=== PATIENT | female | born 1960 | race Two or more races ===

== ENCOUNTER 2018-09-17 00:05 | Emergency (ER) | payer OTHER ==
[~2018-09-17] VITALS: Ht 170.2 cm; Wt 117.0 kg
[2018-09-17] MEDS ORDERED: CLONAZEPAM1 MG (00:12)
[2018-09-17] MEDS ORDERED: MIRALAX510 GM PO (05:33)
== END 2018-09-17 05:41 | disposition home or self-care (01) ==
LOC: ER 00:05
DX: K59.09 Other constipation (principal)

== ENCOUNTER 2022-03-17 09:24 | Emergency (ER) | payer OTHER ==
[~2022-03-17] VITALS: Ht 170.2 cm; Wt 72.6 kg
[~2022-03-17 09:24] MED LIST: CLONAZEPAM1 MG; MIRALAX510 GM PO; SEROQUEL200 MG PO
== END 2022-03-17 17:42 | disposition home or self-care (01) ==
LOC: ER 09:24
DX: M54.50 Low back pain, unspecified (principal)

== ENCOUNTER 2022-04-01 08:19 | Outpatient (CLI) | payer OTHER | END 2022-04-01 08:30 | disposition home or self-care (01) | LOC: MRI 08:19 | DX: M54.50 Low back pain, unspecified (principal) | CPT/HCPCS: 72148 ==

== ENCOUNTER 2023-04-20 08:01 | Outpatient (CLI) | payer OTHER | END 2023-04-20 08:02 | disposition home or self-care (01) | LOC: TOM 08:01 | DX: R19.4 Change in bowel habit (principal) ==

== ENCOUNTER 2023-06-19 11:40 | Outpatient (CLI) | payer OTHER | END 2023-06-19 12:03 | disposition home or self-care (01) | LOC: RAD 11:40 | PROVIDERS: ATTEND Specialist | DX: M72.2 Plantar fascial fibromatosis (principal); R07.9 Chest pain, unspecified; F17.219 Nicotine dependence, cigarettes, with unspecified nicotine-induced disorders ==

== ENCOUNTER 2024-05-10 17:47 | Emergency (ER) | payer OTHER ==
[~2024-05-10] VITALS: Ht 167.6 cm; Wt 64.4 kg
[~2024-05-10 17:47] MED LIST changes: +NORVASC2.5 M1 PO
[2024-05-10] MEDS ORDERED: BACLOFEN10 MG PO (18:29)
[2024-05-10] MEDS ORDERED: KETOROLAC TROMETHAMINE 60 MG VIAL IM ONE (18:30)
[2024-05-10] MEDS ORDERED: ORPHENADRINE CITRATE 30 MG/ML AMPUL IM ONE (18:30)
== END 2024-05-10 20:05 | disposition left against medical advice (07) ==
LOC: ER 17:47
DX: M54.2 Cervicalgia (principal); M54.89 Other dorsalgia

== ENCOUNTER → 2024-06-14 | Outpatient (CLI) | payer OTHER ==
[~2024-06-14] MED LIST changes: +BACLOFEN10 MG PO
== END | disposition home or self-care (01) ==
LOC: RAD 13:30
PROVIDERS: ATTEND Specialist
DX: M19.019 Primary osteoarthritis, unspecified shoulder (principal); M19.079 Primary osteoarthritis, unspecified ankle and foot

== ENCOUNTER 2025-02-27 13:07 | Outpatient (CLI) | payer OTHER | END 2025-02-27 13:36 | disposition home or self-care (01) | LOC: MRI 13:07 | PROVIDERS: ATTEND Anesthesiology Pain Medicine | DX: M54.50 Low back pain, unspecified (principal) | CPT/HCPCS: 72148 ==

== ENCOUNTER 2025-03-20 07:57 | Emergency (ER) | payer OTHER ==
[~2025-03-20] VITALS: Ht 170.2 cm; Wt 62.6 kg
[2025-03-20] MEDS ORDERED: LAMICTAL ODT50 MG PO (08:27)
[2025-03-20] MEDS ORDERED: [UNRECOGNIZED DRUG - OTHER] (08:27)
[2025-03-20 08:28] VITALS: BP 107/76; O2SAT 98
[2025-03-20 10:45] LABS: BASO % 0.4 % (0.1-1.2); EOS # 0.13 (0.04-0.54); EOS % 2.4 % (0.7-7.0); LYMPH # 1.86 (1.18-3.74); LYMPH % 34.1 % (19.3-53.1); MEAN PLATELET VOLUME 10.20 fl (9.4-12.4); MONO # 0.82 (0.24-0.82); NEUT # 2.62 (1.56-6.13); NEUT % 47.9 % (34.0-71.1); RED CELL DISTRIBUTION WIDTH 14.0 % (11.6-14.4)
[2025-03-20 11:01] LABS: MONO % 15.0 % (4.7-12.5)
[2025-03-20 11:09] LABS: COVID-19 AG NEGATIVE (NEGATIVE)
[2025-03-20] MEDS ORDERED: GILTUSS COUGH-118 M1 PO (11:38)
[2025-03-20] MEDS ORDERED: ACETAMINOPHEN500 M1 PO (11:38)
[2025-03-20] MEDS ORDERED: LIDOCAINE HCL VISCOUS 20MG/ML BLIST 15ML MM ONE (12:00)
[2025-03-20] MEDS ORDERED: MAG HYDROX/ALUMINUM HYD/SIMETH 30 ML BLIST.PACK PO ONE (12:00)
== END 2025-03-20 12:28 | disposition home or self-care (01) ==
LOC: ER 08:43
PROVIDERS: Preventive Medicine Public Health & General Preventive Medicine
DX: B34.9 Viral infection, unspecified (principal); J00 Acute nasopharyngitis [common cold]; I10 Essential (primary) hypertension; Z20.822 Contact with and (suspected) exposure to COVID-19

== ENCOUNTER 2025-07-11 13:58 | Emergency (ER) | payer OTHER ==
[~2025-07-11] VITALS: Ht 162.6 cm; Wt 65.3 kg
[~2025-07-11 13:58] MED LIST changes: +ACETAMINOPHEN500 M1 PO; +GILTUSS COUGH-118 M1 PO; +LAMICTAL ODT50 MG PO; +[UNRECOGNIZED DRUG - OTHER]
[2025-07-11] MEDS ORDERED: LIDOCAINE HCL 120 ML ML MM ONE (15:30)
[2025-07-11] MEDS ORDERED: LACTOBACILLUS ACIDOPHILUS 1 CAP CAP PO ONE ×2 (15:30→17:46)
[2025-07-11] MEDS ORDERED: ACETAMINOPHEN 500 MG GEL..CAP PO ONE ×2 (15:30→17:45)
[2025-07-11] MEDS ORDERED: MAG HYDROX/ALUMINUM HYD/SIMETH 30 ML BLIST.PACK PO ONE ×2 (15:30→17:45)
[2025-07-11] MEDS ORDERED: HYOSCYAMINE SULFATE 0.125 MG TAB.SUBL ONE (17:44)
[2025-07-11] MEDS ORDERED: LIDOCAINE HCL VISCOUS 20MG/ML BLIST 15ML MM ONE (17:45)
[2025-07-11 18:10] LABS: BASO % 0.5 % (0.1-1.2); EOS # 0.27 (0.04-0.54); EOS % 2.8 % (0.7-7.0); LYMPH # 3.27 (1.18-3.74); LYMPH % 33.6 % (19.3-53.1); MEAN PLATELET VOLUME 9.60 fl (9.4-12.4); MONO # 0.99 (0.24-0.82); MONO % 10.2 % (4.7-12.5); NEUT # 5.10 (1.56-6.13); NEUT % 52.5 % (34.0-71.1); RED CELL DISTRIBUTION WIDTH 14.3 % (11.6-14.4)
[2025-07-11 18:52] LABS: ALT/SGPT 31.0 U/L (12-78); AST/SGOT 28.0 U/L (15-37); BILIRUBIN TOTAL 0.18 mg/dL (0.3-1.2); BUN CREA RATIO 19.0 (7.0-25.0); CREATININE SERUM 0.7 mg/dL (0.55-1.02); GFR 83.98; GLOBULINA 3.2 G/DL (2.4-3.5); GLUCOSE FASTING 102.0 mg/dL (65-100); OSMOLALITY SERUM 283.0 MOSM/KG (275-295)
[2025-07-11 19:35] LABS: COVID-19 AG NEGATIVE (NEGATIVE)
[2025-07-11] MEDS ORDERED: CHLORASEPTIC177 M2 MM (20:06)
[2025-07-11] MEDS ORDERED: INTESTINEX680 M1 PO (20:06)
[2025-07-11] MEDS ORDERED: BENZONATATE200 M1 PO (20:06)
== END 2025-07-11 21:21 | disposition home or self-care (01) ==
LOC: ER 13:59
PROVIDERS: General Practice
DX: R07.89 Other chest pain (principal); B34.9 Viral infection, unspecified; Z20.822 Contact with and (suspected) exposure to COVID-19; I10 Essential (primary) hypertension